=== PATIENT | male | born 1960 | race Caucasian/White ===

== ENCOUNTER → 2018-11-04 | Outpatient (CLI) | payer MEDICARE, MEDICAID ==
[2018-11-04 14:21] LABS: CALCIUM LEVEL 8.9 MG/DL (8.5-10.1); CREATININE FOR GFR 1.38 MG/DL (0.70-1.30); GLOMERULAR FILTRATION RATE 56.7 (>56); POTASSIUM SERUM 4.6 MEQ/L (3.5-5.1)
== END ==
LOC: M SMT 11:39
PROVIDERS: ATTEND Nurse Practitioner Women's Health
DX: R31.29 Other microscopic hematuria (principal); Z12.5 Encounter for screening for malignant neoplasm of prostate
CPT/HCPCS: 36415; 80048; 81001; 87086; 88108; G0103; G0463